=== PATIENT | female | born 1990 | race American Indian/Alaskan Native ===

== ENCOUNTER 2021-09-19 11:50 | Emergency (ER) | payer BC ==
[2021-09-19 12:07] VITALS: BP 130/78
--- NOTE | 2021-09-19 12:33 | Emergency Department Report ---
HPI - General Chief Complaint: Vaginal Bleeding Time Seen by Provider: 09/19/21 12:10 - HPI HPI: 31-year-old female presents to the emergency department with complaint of vaginal bleeding and some pelvic cramping while . Patient is about 12 weeks and says that she woke up this morning and went to use the bathroom and had some moderate vaginal bleeding with clots. She has gone through 1 pad thus far. She says that she had an episode of very mild vaginal bleeding about 4 weeks ago, but spoke to her PAPER SUPERVISOR service and told that ever ything was normal and it did stop within 2 days. She follows with Dr. Santacruz. She denies any other past medical history. With this she is G4, P2 with 1 previous . No recent travel or sick contacts at home. She has not taken anything for symptoms prior to presentation today. ED Review of Systems ROS: Stated complaint: AND BLEEDING Other details as noted in HPI Comment: All other systems reviewed and negative Constitutional: denies: chills, fever Eyes: denies: eye pain, vision change ENT: denies: ear pain, throat pain Respiratory: denies: cough, shortness of breath Cardiovascular: denies: chest pain, palpitations Gastrointestinal: denies: abdominal pain, vomiting Genitourinary: other (Vaginal bleeding, pelvic cramping). denies: dysuria, discharge Musculoskeletal: denies: back pain, arthralgia Skin: denies: rash, lesions Neurological: denies: headache, weakness Physical Exam - Physical Exam Vital Signs: Vital Signs 09/19/21 12:01 Temperature 98 F Pulse Rate 72 Respiratory 16 Rate Blood Pressure 130/78 [Left] O2 Sat by Pulse 96 Oximetry Physical Exam: GENERAL: The patient is well-developed well-nourished. HENT: Normocephalic. Atraumatic. Patient has moist mucous membranes. EYES: Extraocular motions are intact. NECK: Supple. Trachea is midline. CHEST/LUNGS: Clear to auscultation. There is no respiratory distress noted. HEART/CARDIOVASCULAR: Regular. There is no tachycardia. There is no murmur. ABDOMEN: Abdomen is soft, nontender. Patient has normal bowel sounds. There is no abdominal distention. SKIN: Skin is warm and dry. NEURO: The patient is awake, alert, and oriented. The patient is cooperative. Normal speech. MUSCULOSKELETAL: There is no tenderness or deformity. There is no limitation ra nge of motion. ED Course Vital Signs 09/19/21 12:01 Temperature 98 F Pulse Rate 72 Respiratory 16 Rate Blood Pressure 130/78 [Left] O2 Sat by Pulse 96 Oximetry ED Medical Decision Making - Lab Data Result diagrams: 09/19/21 12:58 09/19/21 12:58 Lab Results 09/19/21 1209/19/21 Range/Units 12:58 12:58 12:58 WBC 5.6 (4.5-11.0) K/mm3 RBC 3.59 L (3.65-5.03) M/mm3 Hgb 11.3 (10.1-14.3) gm/dl Hct 34.1 (30.3-42.9) % MCV 95 (79-97) fl MCH 31 (28-32) pg MCHC 33 (30-34) % RDW 12.9 L (13.2-15.2) % Plt Count 209 (140-440) K/mm3 Lymph % (Auto) 9.3 L (13.4-35.0) % [place] % (Auto) 5.5 (0.0-7.3) % Eos % (Auto) 0.2 (0.0-4.3) % Baso % (Auto) 0.1 (0.0-1.8) % Lymph # (Auto) 0.5 L (1.2-5.4) K/mm3 [place] # (Auto) 0.3 (0.0-0.8) K/mm3 Eos # (Auto) 0.0 (0.0-0.4) K/mm3 Baso # (Auto) 0.0 (0.0-0.1) K/mm3 Seg Neutrophils % 84.9 H (40.0-70.0) % Seg Neutrophils # 4.7 (1.8-7.7) K/mm3 Sodium 130 L (137-145) mmol/L Potassium 4.1 (3.6-5.0) mmol/L Chloride 94.9 L (98-107) mmol/L Carbon Dioxide 20 L (22-30) mmol/L Anion Gap 19 mmol/L BUN 4 L (7-17) mg/dL Creatinine 0.4 L (0.6-1.2) mg/dL Estimated GFR > 60 ml/min BUN/Creatinine Ratio 10 % Glucose 96 (65-100) mg/dL Calcium 9.3 (8.4-10.2) mg/dL HCG, Quant 60454 H (0-4) mIU/mL Blood Type Ord Rhogam Gestat Weeks WEEKS 09/19/21 Range/Units 12:58 WBC (4.5-11.0) K/mm3 RBC (3.65-5.03) M/mm3 Hgb (10.1-14.3) gm/dl Hct (30.3-42.9) % MCV (79-97) fl MCH (28-32) pg MCHC (30-34) % RDW (13.2-15.2) % Plt Count (140-440) K/mm3 Lymph % (Auto) (13.4-35.0) % [place] % (Auto) (0.0-7.3) % Eos % (Auto) (0.0-4.3) % Baso % (Auto) (0.0-1.8) % Lymph # (Auto) (1.2-5.4) K/mm3 [place] # (Auto) (0.0-0.8) K/mm3 Eos # (Auto) (0.0-0.4) K/mm3 Baso # (Auto) (0.0-0.1) K/mm3 Seg Neutrophils % (40.0-70.0) % Seg Neutrophils # (1.8-7.7) K/mm3 Sodium (137-145) mmol/L Potassium (3.6-5.0) mmol/L Chloride (98-107) mmol/L Carbon Dioxide (22-30) mmol/L Anion Gap mmol/L BUN (7-17) mg/dL Creatinine (0.6-1.2) mg/dL Estimated GFR ml/min BUN/Creatinine Ratio % Glucose (65-100) mg/dL Calcium (8.4-10.2) mg/dL HCG, Quant (0-4) mIU/mL Blood Type A POSITIVE Ord Rhogam Gestat Weeks Rh pos WEEKS - Radiology Data Radiology results: report reviewed ULTRASOUND OBSTETRIC INDICATION / CLINICAL INFORMATION: vaginal bleeding, . Clinical Gestational Age (GA) in weeks, days: 12, 4 TECHNIQUE: Tra nsabdominal. COMPARISON: None available. FINDINGS: GESTATIONAL SAC: Well- defined oval shape and intrauterine in location. YOLK SAC: No significant abnormality. EMBRYO/FETUS: No significant abnormality. - [place]-Rump Length = 6.7 cm = 12, 6 weeks, days - Heart Rate, beats per minute (if present) = 185 ADNEXA: No significant abnormality. FREE FLUID: None. ADDITIONAL FINDINGS: There is a small (less than 50 %) subchorionic hemorrhage involving the right subchorionic space. IMPRESSION: 1. Single, living intrauterine with estimated sonographic age of 12, 6 weeks, days. heart tones are noted 125 bpm. 2. Small (less than 50%) subchorionic hemorrhage. - Medical Decision Making This patient presents with vaginal bleeding with clots, and some pelvic discomfort, while . Labs have been mostly unremarkable including a stable hemoglobin of about 11, beta-hCG of 90,000. Blood type is a positive and therefore does not need the RhoGam shot. Ultrasound shows live intrauterine at about 12 weeks and a subchorionic hemorrhage. Vital signs reassuring including being afebrile. We discussed the diagnosis of threatened miscarriage. She has good outpatient follow-up with her PAPER SUPERVISOR. Critical Care Time: No Critical care attestation.: If time is entered above; I have spent that time in minutes in the direct care of this critically ill patient, excluding procedure time. ED Disposition Clinical Impression: Threatened miscarriage Qualifiers: Weeks of gestation: 12 weeks Qualified Code(s): Z3A.12 - 12 weeks gestation of Disposition: 01 HOME / SELF CARE / HOMELESS Is pt being admited?: No Condition: Stable Instructions: Threatened Miscarriage, First Trimester of Additional Instructions: Please follow-up with your PAPER SUPERVISOR in the next few days. Please avoid any sexual intercourse and do not place anything inside of the vagina until follow-up with the PAPER SUPERVISOR. Return to the emergency department with any worsening of your symptoms, new or concerning symptoms not addressed during this current emergency department visit, or with any acute distress. Referrals: BENIGNO SANTACRUZ MD [Staff Physician] - 2-3 Days Forms: Work/School Release Form(ED) Time of Disposition: 14:50
--- NOTE | 2021-09-19 13:51 | Ultrasound Report ---
ULTRASOUND OBSTETRIC INDICATION / CLINICAL INFORMATION: vaginal bleeding, . Clinical Gestational Age (GA) in weeks, days: 12, 4 TECHNIQUE: Transabdominal. COMPARISON: None available. FINDINGS: GESTATIONAL SAC: Well-defined oval shape and intrauterine in location. YOLK SAC: No significant abnormality. EMBRYO/FETUS: No significant abnormality. - [place]-Rump Length = 6.7 cm = 12, 6 weeks, days - Heart Rate, beats per minute (if present) = 185 ADNEXA: No significant abnormality. FREE FLUID: None. ADDITIONAL FINDINGS: There is a small (less than 50 %) subchorionic hemorrhage involving the right [place] bchorionic space. IMPRESSION: 1. Single, living intrauterine with estimated sonographic age of 12, 6 weeks, days. heart tones are noted 125 bpm. 2. Small (less than 50%) subchorionic hemorrhage. Signer Name: Wilmer Pierce DO Signed: 09/19/2021 1:47 PM Workstation Name: [id number]
[2021-09-19 14:04] LABS: Basophils % (Auto) 0.1 % (0.0-1.8); Eosinophils % (Auto) 0.2 % (0.0-4.3); Hematocrit 34.1 % (30.3-42.9); Hemoglobin 11.3 gm/dl (10.1-14.3); Lymphocytes # (Auto) 0.5 K/mm3 (1.2-5.4); Lymphocytes % (Auto) 9.3 % (13.4-35.0); Mean Corpuscular HGB Conc 33 % (30-34); Mean Corpuscular Volume 95 fl (79-97); Monocytes # (Auto) 0.3 K/mm3 (0.0-0.8); Monocytes % (Auto) 5.5 % (0.0-7.3); Platelet Count 209 K/mm3 (140-440); Red Blood Count 3.59 M/mm3 (3.65-5.03); Red Cell Distribution Width 12.9 % (13.2-15.2)
[2021-09-19 14:20] LABS: Blood Urea Nitrogen 4 mg/dL (7-17); Calcium 9.3 mg/dL (8.4-10.2); Hemolysis Index 22
[2021-09-19 14:21] LABS: BUN/Creatinine Ratio 10
== END 2021-09-19 15:15 | disposition home or self-care (01) ==
LOC: ED 11:50
DX: O20.0 Threatened abortion (principal); Z3A.12 12 weeks gestation of pregnancy
CPT/HCPCS: 36415; 76801; 80048; 84702; 85025; 86900; 86901; 99284